=== PATIENT | male | born 1970 | race Caucasian/White ===

== ENCOUNTER 2021-04-16 11:06 | Inpatient (IN) ==
[2021-04-16 11:16] VITALS: BMI 30.6
[2021-04-16] MEDS ORDERED: SOLU-Medrol 125 MG VIAL IVP ONE (11:45)
[2021-04-16] MEDS ORDERED: NS 1,000 ML IV 1,000 ML IV ONE (11:45)
--- NOTE | 2021-04-16 11:46 | DR.SOBA ---
HPI Time Seen Time Seen by Provider: 04/16/21 11:33 HPI Comment HPI Comment: PATIENT IS 51YR OLD MALE IN ER WITH INCREASING SOB, COUGH, CONGESTION AND HEADACHE, WORSE SINCE LAST NIGHT. SICK TIMES 0NE WEEK. TESTED POSITIVE FOR COVID 19 VIRUS THURSDAY. DENIES FEVER. NO VOMITING OR DIARRHEA. RECEIVE ANTIBIOTICS AND STERIOD. NO IMPROVEMENT. Complaints Chief Complaint Doctors Comments: INCREASING SOB AND HEADACHE TIMES ONE DAY. TESTED POTIVE FOR COVID 19 VIRUS ON THURSDAY. Chief Complaint:: TESTED POSITIVE SINCE LAST THURSDAY, HAVE HAD IVERMECTIN, ZPAK,PREDNISONE AND FINISHED TODAY. PATIENT FELT SHORTNESS OF BREATH AND SEVERE HEADACHE ALL NIGHT. PATIENT HAS NOT BEEN GIVEN COVID INFUSION AND NOT VACCINATED. CALLED EMS THIS MORING DUE TO SOB, SATS WAS 91-93%, HAD BROTHER BRING TO ER Self Treatment fo Chief Complaint: STEROIDS, ZPAK, IVERMECTIN COVID-19 Coronavirus risk:travel/contact w/high risk person: No Has patient experienced Coronavirus symptoms: Yes Coronavirus symptoms experienced: Coughing and Shortness of Breath Reviewed Nurses Notes Reviewed: Yes Source History Provided: Patient Mode of Arrival Mode of Arrival: Ambulatory Timing Onset of Chief Complaint: 04/09/21 Duration Duration: Days Context Onset:: At Rest PE Risk Factors:: None History of:: None Currently on:: Neither Prehospital Care:: None Modifying Factors Worsens:: Exertion Improves:: Rest Associated Signs and Symptoms Associated Signs and Symptoms: Cough (SOB.) and Nasal Congestion If Chest Pain Quality: Pleuritic Location: Substernal If Cough Cough: Productive and Yellow Other History Other History: DM. PMH PMH Past Medical History: Yes Past Medical History: Diabetes Past Medical History Comment: DM TYPE 2 Past Surgical History: Yes Surgical History: Appendectomy Past Surgical History Comment: LEFT EYE Family History History of Family Medical Conditions: Yes Family Medical History: Diabetes Mellitus, Cancer, [place] and Hypertension Social History Type of Tobacco Use: None Alcohol Use: None Do you use any recreational Drugs:: No Lives With: Alone Lives Where: Home Travel Risk Coronavirus risk:travel/contact w/high risk person: No Has patient experienced Coronavirus symptoms: Yes Coronavirus symptoms experienced: Coughing and Shortness of Breath Infectious screening In the last 2 months have you had wt loss of >10#?: NO Have you had fever, night sweats or hemotysis?: No Have you traveled outside the country in the last 6 months?: No Isolation: Droplet ROS Review of Systems Constitutional: See HPI, Weakness and Fatigue; negative Fever Eyes: No Symptoms Reported and See HPI ENTM: See HPI, Nose Discharge and Nose Congestion Respiratoy: See HPI, Productive Cough and Short of Breath; negative Wheezing Cardiovascular: No Symptoms Reported and See HPI; negative Chest Pain Gastrointestinal/Abdominal: No Symptoms Reported and See HPI; negative Abdominal Pain, Diarrhea and Vomiting Genitourinary: No Symptoms Reported and See HPI; negative Dysuria, Frequency and Hematuria Neurological: See HPI, Headache and Weakness; negative Dizziness Musculoskeletal: No Symptoms Reported and See HPI; negative Back Pain and Muscle Pain Integumentary: No Symptoms Reported and See HPI; negative Rash and Juandice Hematologic/Lymphatic: No Symptoms Reported and See HPI; negative Easy Bruising Endocrine: No Symptoms Reported and See HPI; negative Increased Thirst and Increased Urine Psychiatric: No Symptoms Reported and See HPI All Other Systems: Reviewed and Negative PE Vital Signs Vitals: Temperature 99.3 F Pulse Rate 90 Respiratory Rate 26 Blood Pressure [Left Arm] 139/67 Blood Pressure 134/64 O2 Sat by Pulse Oximetry 92 General Limitations: No Limitations General Appearance: Alert and In Distress Head Head Exam: Normal Inspection Eyes Eye exam: Normal Appearance; negative Scleral Icterus and Conjunctival Injection ENT ENT Exam: Normal Exam, Normal Oropharynx, Normal External Ear Exam and TM's Normal Bilaterally Neck Neck Exam: Normal Inspection and Trachea Midline; negative Tenderness Chest Chest Inspection: Normal Inspection and Symmetric Chest Wall Rise; negative Tenderness Respiratory Respiratory Exam: Normal Lung Sounds Bilat; negative Accessory Muscle Use, Chest Wall Tenderness and Respiratory Distress Respiratory Exam: Bilateral: Rhonchi and Lower: Rhonchi Cardiovascular Cardiovascular Exam: Regular Rate, Normal Rhythm and Normal Heart Sounds; negative Systolic Murmur and Diastolic Murmur Abdominal Exam Abdominal Exam: Normal Inspection, Normal Bowel Sounds and Soft; negative Tenderness Extremities Extremities Exam: Normal Inspection and Normal Capillary Refill Back Back Exam: Normal Inspection; negative (R) CVA Tenderness and (L) CVA Tenderness Neurologic Neurological Exam: Alert and Oriented X3; negative Motor Sensory Deficit Psychiatric Psychiatric Exam: Normal Affect and Normal Mood Skin Skin Exam: Warm, Dry, Intact and Normal Color MDM Differential Diagnosis Differential Diagnosis: Bronchitis, Pneumonia, Pneumothorax, Respiratory Insufficiency, Sinusitis and URI COURSE Treatment Treatment: SEE ORDERS. Education/Counseling Education/Counseling: Patient Educated On: Diagnosis and Needs for Follow Up ROR Labs Reviewed Laboratory Results Reviewed?: Yes Result Diagrams: 04/22/21 05:12 04/22/21 05:12 Laboratory: WBC 6.0 X10^3/uL (3.6-10.0) 04/17/21 04:17 RBC 3.73 X10^6/uL (4.7-6.0) L 04/17/21 04:17 Hgb 11.7 g/dL (13.5-18.0) L 04/17/21 04:17 Hct 33.8 % (42.0-54.0) L 04/17/21 04:17 MCV 90.6 fL (80.0-100.0) 04/17/21 04:17 MCH 31.4 pg (27.0-34.0) 04/17/21 04:17 MCHC 34.6 g/dL (33.0-35.0) 04/17/21 04:17 RDW 12.7 % (11.6-16.5) 04/17/21 04:17 Plt Count 297 X10^3/uL (150.0-450.0) 04/17/21 04:17 Plt Count Comment Adequate (ADEQUATE) 04/16/21 14:00 MPV 6.8 fL (7.4-11.0) L 04/17/21 04:17 Neut % (Auto) 82.1 % (42.0-75.0) H 04/17/21 04:17 Lymph % (Auto) 9.5 % (21.0-51.0) L 04/17/21 04:17 Vermilion % (Auto) 8.3 % (0.0-13.0) 04/17/21 04:17 Eos % (Auto) 0.0 % (0.9-2.9) L 04/17/21 04:17 Baso % (Auto) 0.1 % (0.2-1.0) L 04/17/21 04:17 Neut # (Auto) 5.0 x10^3/uL (2.2-4.8) H 04/17/21 04:17 Lymph # (Auto) 0.6 X10^3/uL (1.3-2.9) L 04/17/21 04:17 Vermilion # (Auto) 0.5 x10^3/uL (0.3-0.8) 04/17/21 04:17 Eos # (Auto) 0.0 x10^3/uL (0.0-0.2) 04/17/21 04:17 Baso # (Auto) 0.0 X10^3/uL (0.0-0.1) 04/17/21 04:17 Absolute Nucleated RBC 0.0 /100WBC 04/17/21 04:17 Total Counted 100 04/16/21 14:00 Neutrophils % (Manual) 87 % (39-76) H 04/16/21 14:00 Band Neutrophils % 4 % (0-10) 04/16/21 14:00 Lymphocytes % (Manual) 5 % (13-43) L 04/16/21 14:00 Monocytes % (Manual) 4 % (4-9) 04/16/21 14:00 Plt Morphology Comment Normal (NORMAL) 04/16/21 14:00 RBC Morphology Normal (NORMAL) 04/16/21 14:00 D-Dimer 0.52 ug/ml (0.0-0.57) 04/16/21 14:00 Sodium 138 mmol/L (136-145) 04/17/21 04:17 Corrected Sodium 140 mmol/L (136-145) 04/17/21 04:17 Potassium 3.7 mmol/L (3.5-5.1) 04/17/21 04:17 Chloride 105 mmol/L (98-107) 04/17/21 04:17 Carbon Dioxide 22.0 mmol/L (21-32) 04/17/21 04:17 BUN 14 mg/dL (7-18) 04/17/21 04:17 Creatinine 0.96 mg/dL (0.70-1.30) 04/17/21 04:17 Est GFR (MDRD) Af Amer > 60 (>60) 04/17/21 04:17 Est GFR (MDRD) Non-Af > 60 (>60) 04/17/21 04:17 Glucose 185 mg/dL (65-99) H 04/17/21 04:17 Calcium 7.8 mg/dL (8.5-10.1) L 04/17/21 04:17 Corrected Calcium 9.2 mg/dL (8.5-10.1) 04/17/21 04:17 Total Bilirubin 0.30 mg/dL (0.2-1.0) 04/17/21 04:17 AST 21 Units/L (15-37) 04/17/21 04:17 ALT 28 Units/L (12-78) 04/17/21 04:17 Alkaline Phosphatase 45 Units/L (46-116) L 04/17/21 04:17 C-Reactive Protein 90.20 mg/L (0-3.0) H 04/17/21 04:17 Total Protein 6.5 g/dL (6.4-8.2) 04/17/21 04:17 Albumin 2.2 g/dL (3.4-5.0) L 04/17/21 04:17 Globulin 4.3 g/dL (2.5-4.5) 04/17/21 04:17 Albumin/Globulin Ratio 0.5 Ratio (1.1-2.1) L 04/17/21 04:17 Specimen Type Clean catch urine 04/16/21 21: Urine Color Yellow (YELLOW) 04/16/21 21: Urine Appearance Clear (CLEAR) 04/16/21 21: Urine pH 6.0 (5.0 - 8.0) 04/16/21 21: Ur Specific [place] 1.025 (1.000-1.030) 04/16/21 21: Urine Protein 2+ (NEGATIVE) 04/16/21 21: Urine Glucose (UA) 4+ (NEGATIVE) 04/16/21 21: Urine Ketones Negative (NEGATIVE) 04/16/21 21: Urine Occult Blood Negative (NEGATIVE) 04/16/21 21: Urine Nitrite Negative (NEGATIVE) 04/16/21 21: Urine Bilirubin Negative (NEGATIVE) 04/16/21 21: Urine Urobilinogen Normal (NORMAL) 04/16/21 21: Ur Leukocyte Esterase Negative (NEGATIVE) 04/16/21 21: Urine RBC None seen /HPF (0-3) 04/16/21 21: Urine WBC None seen /HPF (0-5) 04/16/21 21: Ur Squamous Epith Cells Rare /HPF (NEGATIVE) 04/16/21 21: Urine Bacteria Negative /HPF (NEGATIVE) 01/18/22 21:26 Ur Culture Indicated? No/not indicated 04/16/21 21:26 SARS-CoV-2 (PCR) Positive (NEGATIVE) A 04/16/21 15:00 Influenza Type A (PCR) Negative (NEGATIVE) 04/16/21 15:00 Influenza Type B (PCR) Negative (NEGATIVE) 04/16/21 15:00 RSV (PCR) Negative (NEGATIVE) 04/16/21 15:00 XRAY XRAY Interpreted by: Radiologist (REPORT NOTED AND DISCUSSED WITH PATIENT.) and Self Opioid Opioid Risk Tool Age (Garret box if 16-45): No History of Preadolescent Sexual Abuse: No Total: 0 Total Score Risk Category: Low Risk Copyright: [facility] predicting aberrant behaviors Diagnosis Discharge Problem: Acute respiratory distress, COVID-19 virus infection Pneumonia Qualifiers: Pneumonia type: due to unspecified organism Laterality: bilateral Lung location: lower lobe of lung Qualified Code(s): J18.9 - Pneumonia, unspecified organism Instructions Instructions: How to Use an Incentive Spirometer Home Oxygen Use, Adult COVID-19 Frequently Asked Questions Type 2 Diabetes Mellitus, Self-Care, Adult, [id number] How to Wear and Take Off Your Mask - CDC (06/28/2020) 10 Things You Can Do to Manage Your COVID-19 Symptoms at Home - CDC () COVID-19 COVID-19: How to Protect Yourself and Others - CDC Hypertension, Adult, [id number] Community-Acquired Pneumonia, Adult, [id number] Forms: EUA Consent Excuse From Work or School Precautions for COVID19 [facility] Social Distancing Arlyn
[2021-04-16] MEDS ORDERED: SOLU-Medrol 125 MG VIAL ONE (11:48)
[2021-04-16] MEDS ORDERED: NS 1,000 ML IV 1,000 ML ONE ×2 (11:48→14:12)
[2021-04-16 12:02] LABS: BASOPHILS # (AUTO) 0.1 X10^3/uL (0.0-0.1); BASOPHILS % (AUTO) 1.5 % (0.2-1.0); EOSINOPHILS % (AUTO) 0.1 % (0.9-2.9); HEMATOCRIT 36.4 % (42.0-54.0); HEMOGLOBIN 12.7 g/dL (13.5-18.0); LYMPHOCYTES # (AUTO) 0.4 X10^3/uL (1.3-2.9); LYMPHOCYTES % (AUTO) 5.6 % (21.0-51.0); MEAN CORPUSCULAR HEMOGLOBIN 31.7 pg (27.0-34.0); MEAN CORPUSCULAR VOLUME 90.5 fL (80.0-100.0); MEAN PLATELET VOLUME 6.4 fL (7.4-11.0); MONOCYTES # (AUTO) 0.4 x10^3/uL (0.3-0.8); NEUTROPHILS # (AUTO) 6.5 x10^3/uL (2.2-4.8); NEUTROPHILS % (AUTO) 86.8 % (42.0-75.0); RED BLOOD COUNT 4.03 X10^6/uL (4.7-6.0); RED CELL DISTRIBUTION WIDTH 12.7 % (11.6-16.5); WHITE BLOOD COUNT 7.4 X10^3/uL (3.6-10.0)
[2021-04-16 12:52] LABS: ALANINE AMINOTRANSFERASE 31 Units/L (12-78); ALBUMIN 2.7 g/dL (3.4-5.0); ALKALINE PHOSPHATASE 54 Units/L (46-116); ASPARTATE AMINO TRANSFERASE 37 Units/L (15-37); BLOOD UREA NITROGEN 13 mg/dL (7-18); CALCIUM 8.1 mg/dL (8.5-10.1); CARBON DIOXIDE 26.3 mmol/L (21-32); CHLORIDE 99 mmol/L (98-107); COR CA(FOR HYPOALB) 9.1 mg/dL (8.5-10.1); COR NA(FOR HYPERGLY) 134 mmol/L (136-145); CREATININE 1.04 mg/dL (0.70-1.30); SODIUM 134 mmol/L (136-145); TOTAL PROTEIN 7.3 g/dL (6.4-8.2); eGFR NON BLACK RACES > 60 (>60)
[2021-04-16] MEDS ORDERED: TORADOL 30 MG VIAL IVP ONE (13:26)
[2021-04-16] MEDS ORDERED: TORADOL 30 MG VIAL ONE (13:30)
[2021-04-16 14:12] LABS: BASOPHILS # (AUTO) 0.1 X10^3/uL (0.0-0.1); BASOPHILS % (AUTO) 1.2 % (0.2-1.0); HEMATOCRIT 36.1 % (42.0-54.0); HEMOGLOBIN 12.5 g/dL (13.5-18.0); LYMPHOCYTES # (AUTO) 0.4 X10^3/uL (1.3-2.9); LYMPHOCYTES % (AUTO) 4.9 % (21.0-51.0); MEAN CORPUSCULAR HEMOGLOBIN 31.4 pg (27.0-34.0); MEAN CORPUSCULAR HGB CONC 34.7 g/dL (33.0-35.0); MEAN CORPUSCULAR VOLUME 90.7 fL (80.0-100.0); MEAN PLATELET VOLUME 6.4 fL (7.4-11.0); MONOCYTES # (AUTO) 0.3 x10^3/uL (0.3-0.8); MONOCYTES % (AUTO) 3.8 % (0.0-13.0); NEUTROPHILS # (AUTO) 6.8 x10^3/uL (2.2-4.8); NEUTROPHILS % (AUTO) 90.1 % (42.0-75.0); RED BLOOD COUNT 3.98 X10^6/uL (4.7-6.0); RED CELL DISTRIBUTION WIDTH 12.9 % (11.6-16.5); WHITE BLOOD COUNT 7.6 X10^3/uL (3.6-10.0)
[2021-04-16] MEDS: NS 1,000 ML IV 1,000 ML IV SCH ×2 (14:17→23:32)
[2021-04-16 14:26] LABS: BAND NEUTROPHILS % 4 % (0-10); PLATELET MORPHOLOGY COMMENT NORMAL (NORMAL)
[2021-04-16 14:27] LABS: ALANINE AMINOTRANSFERASE 32 Units/L (12-78); ALBUMIN 2.5 g/dL (3.4-5.0); ALKALINE PHOSPHATASE 50 Units/L (46-116); ASPARTATE AMINO TRANSFERASE 31 Units/L (15-37); BLOOD UREA NITROGEN 12 mg/dL (7-18); CALCIUM 7.8 mg/dL (8.5-10.1); CARBON DIOXIDE 24.2 mmol/L (21-32); CHLORIDE 101 mmol/L (98-107); COR NA(FOR HYPERGLY) 136 mmol/L (136-145); CREATININE 0.88 mg/dL (0.70-1.30); SODIUM 135 mmol/L (136-145); TOTAL PROTEIN 6.9 g/dL (6.4-8.2); eGFR NON BLACK RACES > 60 (>60)
--- NOTE | 2021-04-16 15:00 | RAD ---
HISTORYSOBSTUDYCHEST, 1 VIEWCOMPARISONNone availableFINDINGSThe trachea is midline. Heart size is normal. There is moderate increased central and peripheral peribronchial thickening with predominately peripheral consolidation within the right upper lobe and throughout the left lung which is consistent with multifocal infiltrates. No pleural effusion or pneumothorax.No acute osseous abnormality.IMPRESSIONBilateral increased peribronchial thickening with predominately peripheral airspace consolidation is consistent with multifocal infiltrates/pneumonia.Electronically signed by: VALERIE MAURICIO (Apr 16, 2021 14:58:57)
[2021-04-16] MEDS ORDERED: NS IV NR ×2 (16:00)
[2021-04-16] MEDS ORDERED: SOTROVIMAB IV NR ×2 (16:00)
[2021-04-16] MEDS ORDERED: DRUG FILTER EXTENSION SET IV NR ×2 (16:00)
[2021-04-16] MEDS ORDERED: SOTROVIMAB (EUA) 500 MG, DRUG FILTER EXTENSION SET * 1 EA in NS 250 ML IV 250 ML IV NR ×2 (16:00)
[2021-04-16] MEDS ORDERED: PULMICORT NEB TX 0.5 MG NEB ONE (20:13)
[2021-04-16] MEDS ORDERED: BROVANA ONE (20:13)
[2021-04-16] MEDS: BROVANA IN SCH (20:28)
[2021-04-16] MEDS: PULMICORT NEB TX 0.5 MG NEB SCH (20:28)
[2021-04-16] MEDS ORDERED: PULMICORT NEB TX 0.5 MG NEB SCH (21:00)
[2021-04-16] MEDS ORDERED: BROVANA IN SCH (21:00)
[2021-04-16] MEDS ORDERED: NovoLIN R (or HumuLIN R) ONE (22:14)
[2021-04-16] MEDS ORDERED: NS 50 ML IV 50 ML IV ONE (22:16)
[2021-04-16] MEDS: ZINC SULFATE PO SCH (22:18)
[2021-04-16] MEDS: VIBRAMYCIN PO SCH (22:18)
[2021-04-16] MEDS: PEPCID TAB 40 MG PO SCH (22:18)
[2021-04-16] MEDS: NovoLIN R (or HumuLIN R) SUBCUT PRN (22:18)
[2021-04-16] MEDS: LOVENOX INJ 30 MG SYR SC SCH (22:19)
[2021-04-16] MEDS: ASCORBIC ACID INJ MULTI-DOSE VIAL 1,500 MG in NS 100 ML IV 100 ML IV SCH (22:20)
[2021-04-16 22:26] LABS: BILIRUBIN,URINE NEGATIVE (NEGATIVE); BLOOD/HEMOGLOBIN,URINE NEGATIVE (NEGATIVE); GLUCOSE, URINE 4+ (NEGATIVE); KETONES,URINE NEGATIVE (NEGATIVE); LEUKOCYTE ESTERASE ,URINE NEGATIVE (NEGATIVE); NITRITES,URINE NEGATIVE (NEGATIVE); PROTEIN,URINE 2+ (NEGATIVE); UROBILINOGEN,URINE NORMAL (NORMAL)
[2021-04-16 22:40] LABS: APPEARANCE,URINE CLEAR (CLEAR); BACTERIA,URINE NEGATIVE /HPF (NEGATIVE); COLOR,URINE YELLOW (YELLOW); RBC,URINE NONE SEEN /HPF (0-3); SQUAMOUS EPITHELIAL CELL,UR RARE /HPF (NEGATIVE)
[2021-04-16] MEDS: SOLU-Medrol 40 MG VIAL IVP SCH (22:58)
[2021-04-16] MEDS: ZOSYN VIAL 3.375 GRAMS 3.375 G in NS 100 ML IV + SPIKE MINIBAG* 100 ML IV SCH (22:59)
[2021-04-17] MEDS ORDERED: NS 50 ML IV 50 ML IV ONE (02:55)
[2021-04-17] MEDS: ASCORBIC ACID INJ MULTI-DOSE VIAL 1,500 MG in NS 100 ML IV 100 ML IV SCH (03:17)
[2021-04-17 05:36] LABS: BASOPHILS % (AUTO) 0.1 % (0.2-1.0); HEMATOCRIT 33.8 % (42.0-54.0); HEMOGLOBIN 11.7 g/dL (13.5-18.0); LYMPHOCYTES # (AUTO) 0.6 X10^3/uL (1.3-2.9); LYMPHOCYTES % (AUTO) 9.5 % (21.0-51.0); MEAN CORPUSCULAR HEMOGLOBIN 31.4 pg (27.0-34.0); MEAN CORPUSCULAR HGB CONC 34.6 g/dL (33.0-35.0); MEAN CORPUSCULAR VOLUME 90.6 fL (80.0-100.0); MEAN PLATELET VOLUME 6.8 fL (7.4-11.0); MONOCYTES # (AUTO) 0.5 x10^3/uL (0.3-0.8); MONOCYTES % (AUTO) 8.3 % (0.0-13.0); NEUTROPHILS % (AUTO) 82.1 % (42.0-75.0); RED BLOOD COUNT 3.73 X10^6/uL (4.7-6.0); RED CELL DISTRIBUTION WIDTH 12.7 % (11.6-16.5)
[2021-04-17 05:44] LABS: ALANINE AMINOTRANSFERASE 28 Units/L (12-78); ALBUMIN 2.2 g/dL (3.4-5.0); ALKALINE PHOSPHATASE 45 Units/L (46-116); ASPARTATE AMINO TRANSFERASE 21 Units/L (15-37); BLOOD UREA NITROGEN 14 mg/dL (7-18); CALCIUM 7.8 mg/dL (8.5-10.1); CHLORIDE 105 mmol/L (98-107); COR CA(FOR HYPOALB) 9.2 mg/dL (8.5-10.1); COR NA(FOR HYPERGLY) 140 mmol/L (136-145); CREATININE 0.96 mg/dL (0.70-1.30); SODIUM 138 mmol/L (136-145); TOTAL PROTEIN 6.5 g/dL (6.4-8.2); eGFR NON BLACK RACES > 60 (>60)
[2021-04-17] MEDS: SOLU-Medrol 40 MG VIAL IVP SCH (05:50)
[2021-04-17] MEDS: ZOSYN VIAL 3.375 GRAMS 3.375 G in NS 100 ML IV + SPIKE MINIBAG* 100 ML IV SCH ×3 (05:50→21:46)
[2021-04-17] MEDS: NovoLIN R (or HumuLIN R) SUBCUT PRN ×2 (06:02→21:02)
[2021-04-17] MEDS: PULMICORT NEB TX 0.5 MG NEB SCH ×2 (08:00→20:15)
[2021-04-17] MEDS: BROVANA IN SCH ×2 (08:00→20:15)
[2021-04-17] MEDS: LOVENOX INJ 30 MG SYR SC SCH (08:33)
[2021-04-17] MEDS: PEPCID TAB 40 MG PO SCH ×2 (08:34→20:58)
[2021-04-17] MEDS: VIBRAMYCIN PO SCH ×2 (08:34→21:01)
[2021-04-17] MEDS: TRICOR TAB 160 MG PO SCH (08:34)
[2021-04-17] MEDS: ZINC SULFATE PO SCH ×2 (08:35→21:01)
[2021-04-17] MEDS ORDERED: VITAMIN A PO SCH ×2 (09:00→10:30)
[2021-04-17] MEDS ORDERED: VITAMIN D (1.25MG) PO SCH (09:00)
[2021-04-17] MEDS: NS 1,000 ML IV 1,000 ML IV SCH ×2 (09:33→12:25)
[2021-04-17] MEDS ORDERED: PERIACTIN TAB 4 MG PO PRN (10:05)
[2021-04-17] MEDS ORDERED: LOVENOX INJ 60 MG SYR SC NR (11:00)
[2021-04-17] MEDS ORDERED: PHARMACY CONSULT - IVERMECTIN XX SCH (11:00)
[2021-04-17] MEDS: IVERMECTIN PO SCH (12:04)
[2021-04-17] MEDS: THIAMINE HCL INJ IVP SCH ×2 (12:05→20:59)
[2021-04-17] MEDS: SOLU-Medrol 125 MG VIAL IVP SCH ×3 (12:05→21:01)
[2021-04-17] MEDS: CYTOTEC PO SCH ×3 (14:34→20:56)
[2021-04-17] MEDS: ASCORBIC ACID INJ MULTI-DOSE VIAL 1,500 MG in NS 50 ML IV 50 ML IV SCH ×2 (15:23→20:56)
[2021-04-17] MEDS: TESSALON PERLES PO PRN ×2 (18:14→21:46)
[2021-04-17] MEDS: SNACK - Diabetic Appropriate PO SCH (20:56)
[2021-04-17] MEDS: LOVENOX INJ 100 MG SYR SC SCH (20:57)
[2021-04-17] MEDS: MELATONIN PO SCH (20:57)
[2021-04-17] MEDS: PROTONIX INJ 40 MG VIAL IVP SCH (20:59)
[2021-04-17] MEDS ORDERED: BROVANA IN SCH (21:00)
[2021-04-17] MEDS ORDERED: PULMICORT NEB TX 0.5 MG NEB SCH (21:00)
[2021-04-18] MEDS: ASCORBIC ACID INJ MULTI-DOSE VIAL 1,500 MG in NS 50 ML IV 50 ML IV SCH ×4 (02:16→20:13)
[2021-04-18 05:08] LABS: BASOPHILS % (AUTO) 0.1 % (0.2-1.0); HEMOGLOBIN 11.4 g/dL (13.5-18.0); LYMPHOCYTES # (AUTO) 0.9 X10^3/uL (1.3-2.9); LYMPHOCYTES % (AUTO) 6.9 % (21.0-51.0); MEAN CORPUSCULAR HEMOGLOBIN 31.3 pg (27.0-34.0); MEAN CORPUSCULAR HGB CONC 34.4 g/dL (33.0-35.0); MONOCYTES # (AUTO) 0.6 x10^3/uL (0.3-0.8); MONOCYTES % (AUTO) 4.4 % (0.0-13.0); NEUTROPHILS # (AUTO) 12.2 x10^3/uL (2.2-4.8); NEUTROPHILS % (AUTO) 88.6 % (42.0-75.0); RED BLOOD COUNT 3.63 X10^6/uL (4.7-6.0); RED CELL DISTRIBUTION WIDTH 12.9 % (11.6-16.5); WHITE BLOOD COUNT 13.7 X10^3/uL (3.6-10.0)
[2021-04-18 05:14] LABS: ALANINE AMINOTRANSFERASE 31 Units/L (12-78); ALBUMIN 2.1 g/dL (3.4-5.0); ALKALINE PHOSPHATASE 46 Units/L (46-116); ASPARTATE AMINO TRANSFERASE 21 Units/L (15-37); BLOOD UREA NITROGEN 19 mg/dL (7-18); CALCIUM 7.7 mg/dL (8.5-10.1); CARBON DIOXIDE 24.9 mmol/L (21-32); CHLORIDE 106 mmol/L (98-107); COR CA(FOR HYPOALB) 9.2 mg/dL (8.5-10.1); COR NA(FOR HYPERGLY) 145 mmol/L (136-145); CREATININE 1.13 mg/dL (0.70-1.30); SODIUM 142 mmol/L (136-145); TOTAL PROTEIN 6.2 g/dL (6.4-8.2); eGFR NON BLACK RACES > 60 (>60)
[2021-04-18] MEDS: ZOSYN VIAL 3.375 GRAMS 3.375 G in NS 100 ML IV + SPIKE MINIBAG* 100 ML IV SCH ×4 (05:43→21:06)
[2021-04-18] MEDS: SOLU-Medrol 125 MG VIAL IVP SCH ×3 (05:44→21:06)
[2021-04-18] MEDS: NovoLIN R (or HumuLIN R) SUBCUT PRN ×2 (05:44→20:15)
[2021-04-18] MEDS: TUSSIONEX PENNKINETIC SUSP PO PRN ×2 (07:49→20:20)
[2021-04-18] MEDS: PULMICORT NEB TX 0.5 MG NEB SCH ×2 (08:22→20:34)
[2021-04-18] MEDS: BROVANA IN SCH ×2 (08:22→21:35)
[2021-04-18] MEDS: CYTOTEC PO SCH ×4 (08:35→20:14)
[2021-04-18] MEDS: IVERMECTIN PO SCH (08:35)
[2021-04-18] MEDS: LIPITOR TAB 80 MG PO SCH (08:35)
[2021-04-18] MEDS: LOVENOX INJ 100 MG SYR SC SCH ×2 (08:35→20:14)
[2021-04-18] MEDS: PEPCID TAB 40 MG PO SCH ×2 (08:35→20:16)
[2021-04-18] MEDS: THIAMINE HCL INJ IVP SCH ×2 (08:36→20:18)
[2021-04-18] MEDS: PROTONIX INJ 40 MG VIAL IVP SCH ×2 (08:36→20:17)
[2021-04-18] MEDS: VITAMIN A PO SCH (08:37)
[2021-04-18] MEDS: TRICOR TAB 160 MG PO SCH (08:37)
[2021-04-18] MEDS: VIBRAMYCIN PO SCH ×2 (08:37→20:19)
[2021-04-18] MEDS: ZINC SULFATE PO SCH ×2 (08:38→20:19)
[2021-04-18] MEDS: VITAMIN D3 125 mcg (5,000 UNITS) PO SCH (08:38)
[2021-04-18] MEDS ORDERED: FIORICET TAB PO PRN (09:09)
[2021-04-18] MEDS: NS 1,000 ML IV 1,000 ML IV SCH (10:57)
[2021-04-18] MEDS: SNACK - Diabetic Appropriate PO SCH (20:12)
[2021-04-18] MEDS: MELATONIN PO SCH (20:15)
[2021-04-19] MEDS: ASCORBIC ACID INJ MULTI-DOSE VIAL 1,500 MG in NS 50 ML IV 50 ML IV SCH ×3 (02:12→14:32)
[2021-04-19 05:33] LABS: BASOPHILS # (AUTO) 0.2 X10^3/uL (0.0-0.1); BASOPHILS % (AUTO) 1.2 % (0.2-1.0); EOSINOPHILS # (AUTO) 0.1 x10^3/uL (0.0-0.2); EOSINOPHILS % (AUTO) 0.8 % (0.9-2.9); HEMATOCRIT 33.3 % (42.0-54.0); HEMOGLOBIN 11.4 g/dL (13.5-18.0); LYMPHOCYTES # (AUTO) 1.3 X10^3/uL (1.3-2.9); LYMPHOCYTES % (AUTO) 8.8 % (21.0-51.0); MEAN CORPUSCULAR HEMOGLOBIN 31.4 pg (27.0-34.0); MEAN CORPUSCULAR HGB CONC 34.2 g/dL (33.0-35.0); MEAN CORPUSCULAR VOLUME 91.9 fL (80.0-100.0); MEAN PLATELET VOLUME 7.2 fL (7.4-11.0); MONOCYTES # (AUTO) 0.5 x10^3/uL (0.3-0.8); MONOCYTES % (AUTO) 3.2 % (0.0-13.0); RED BLOOD COUNT 3.62 X10^6/uL (4.7-6.0); RED CELL DISTRIBUTION WIDTH 13.2 % (11.6-16.5); WHITE BLOOD COUNT 15.1 X10^3/uL (3.6-10.0)
[2021-04-19 05:50] LABS: ALANINE AMINOTRANSFERASE 40 Units/L (12-78); ALBUMIN 2.2 g/dL (3.4-5.0); ALKALINE PHOSPHATASE 43 Units/L (46-116); ASPARTATE AMINO TRANSFERASE 24 Units/L (15-37); BLOOD UREA NITROGEN 23 mg/dL (7-18); CALCIUM 7.5 mg/dL (8.5-10.1); CARBON DIOXIDE 25.9 mmol/L (21-32); CHLORIDE 108 mmol/L (98-107); COR CA(FOR HYPOALB) 8.9 mg/dL (8.5-10.1); COR NA(FOR HYPERGLY) 145 mmol/L (136-145); CREATININE 1.09 mg/dL (0.70-1.30); SODIUM 143 mmol/L (136-145); eGFR NON BLACK RACES > 60 (>60)
[2021-04-19] MEDS: SOLU-Medrol 125 MG VIAL IVP SCH (06:09)
[2021-04-19] MEDS: ZOSYN VIAL 3.375 GRAMS 3.375 G in NS 100 ML IV + SPIKE MINIBAG* 100 ML IV SCH ×2 (06:09→14:32)
[2021-04-19 06:16] LABS: PLATELET MORPHOLOGY COMMENT NORMAL (NORMAL)
[2021-04-19] MEDS: PULMICORT NEB TX 0.5 MG NEB SCH (08:00)
[2021-04-19] MEDS: BROVANA IN SCH (08:00)
[2021-04-19] MEDS ORDERED: VITAMIN A PO SCH (09:00)
[2021-04-19] MEDS ORDERED: VITAMIN D3 125 mcg (5,000 UNITS) PO SCH (09:00)
[2021-04-19] MEDS: CYTOTEC PO SCH ×3 (09:15→16:58)
[2021-04-19] MEDS: PEPCID TAB 40 MG PO SCH (09:16)
[2021-04-19] MEDS: LOVENOX INJ 100 MG SYR SC SCH (09:16)
[2021-04-19] MEDS: IVERMECTIN PO SCH (09:16)
[2021-04-19] MEDS: PROTONIX INJ 40 MG VIAL IVP SCH (09:16)
[2021-04-19] MEDS: LIPITOR TAB 80 MG PO SCH (09:16)
[2021-04-19] MEDS: VIBRAMYCIN PO SCH (09:17)
[2021-04-19] MEDS: TRICOR TAB 160 MG PO SCH (09:17)
[2021-04-19] MEDS: VITAMIN D3 125 mcg (5,000 UNITS) PO SCH (09:17)
[2021-04-19] MEDS: ZINC SULFATE PO SCH (09:17)
[2021-04-19] MEDS: VITAMIN A PO SCH (09:17)
[2021-04-19] MEDS: THIAMINE HCL INJ IVP SCH (09:17)
[2021-04-19] MEDS: SOLU-Medrol 40 MG VIAL IVP SCH ×2 (09:44→14:32)
[2021-04-19] MEDS: NS 1,000 ML IV 1,000 ML IV SCH (10:40)
[2021-04-19] MEDS ORDERED: PULMICORT NEB TX 0.5 MG NEB ONE (20:00)
[2021-04-19] MEDS ORDERED: BROVANA IN ONE (20:00)
[2021-04-19] MEDS ORDERED: TUSSIONEX PENNKINETIC SUSP PO ONE (21:00)
[2021-04-19] MEDS ORDERED: CYTOTEC PO ONE (21:00)
[2021-04-19] MEDS ORDERED: VIBRAMYCIN PO ONE (21:00)
[2021-04-19] MEDS ORDERED: PROTONIX INJ 40 MG VIAL IVP ONE (21:00)
[2021-04-19] MEDS ORDERED: PEPCID TAB 40 MG PO ONE (21:00)
[2021-04-19] MEDS ORDERED: THIAMINE HCL INJ IM ONE (21:00)
[2021-04-19] MEDS ORDERED: LOVENOX INJ 100 MG SYR SC ONE (21:00)
[2021-04-19] MEDS ORDERED: MELATONIN PO ONE (21:00)
[2021-04-19] MEDS ORDERED: SOLU-Medrol 40 MG VIAL IVP ONE (22:00)
[2021-04-19] MEDS ORDERED: NS 100 ML IV + SPIKE MINIBAG IV ONE (22:00)
[2021-04-19] MEDS ORDERED: NovoLIN R (or HumuLIN R) SUBCUT ONE (22:00)
[2021-04-19] MEDS ORDERED: ZOSYN VIAL 3.375 GRAMS IV ONE (22:00)
[2021-04-19] MEDS ORDERED: NS IV ONE (22:00)
[2021-04-19] MEDS ORDERED: ASCORBIC ACID INJ MULTI-DOSE VIAL IV ONE (22:00)
[2021-04-20] MEDS ORDERED: LIPITOR TAB 80 MG PO ONE (09:00)
[2021-04-20] MEDS ORDERED: PEPCID TAB 40 MG PO ONE (09:00)
[2021-04-20] MEDS ORDERED: ASCORBIC ACID INJ MULTI-DOSE VIAL IV ONE ×2 (09:00→15:00)
[2021-04-20] MEDS ORDERED: PROTONIX TAB 40 MG PO ONE (09:00)
[2021-04-20] MEDS ORDERED: THIAMINE HCL INJ ONE (09:00)
[2021-04-20] MEDS ORDERED: LOVENOX INJ 100 MG SYR SC ONE (09:00)
[2021-04-20] MEDS ORDERED: IVERMECTIN PO ONE (09:00)
[2021-04-20] MEDS ORDERED: CYTOTEC PO ONE (09:00)
[2021-04-20] MEDS: THIAMINE HCL INJ IVP SCH ×2 (09:15→20:46)
[2021-04-20] MEDS ORDERED: PULMICORT NEB TX 0.5 MG NEB ONE (09:15)
[2021-04-20] MEDS: CYTOTEC PO SCH ×4 (09:15→20:29)
[2021-04-20] MEDS: VIBRAMYCIN PO SCH ×2 (09:15→20:46)
[2021-04-20] MEDS ORDERED: BROVANA IN ONE (09:15)
[2021-04-20] MEDS: ASCORBIC ACID INJ MULTI-DOSE VIAL 1,500 MG in NS 50 ML IV 50 ML IV SCH ×4 (09:15→22:16)
[2021-04-20] MEDS ORDERED: ZOSYN VIAL 3.375 GRAMS IV ONE ×2 (09:23→14:18)
[2021-04-20] MEDS: VITAMIN D3 125 mcg (5,000 UNITS) PO SCH (09:35)
[2021-04-20] MEDS: PEPCID TAB 40 MG PO SCH ×2 (09:35→20:46)
[2021-04-20] MEDS: PROTONIX INJ 40 MG VIAL IVP SCH ×2 (09:35→20:46)
[2021-04-20] MEDS: ZINC SULFATE PO SCH ×2 (09:35→20:46)
[2021-04-20] MEDS: LOVENOX INJ 100 MG SYR SC SCH ×4 (09:40→20:29)
[2021-04-20] MEDS: TRICOR TAB 160 MG PO SCH (09:45)
[2021-04-20] MEDS: LIPITOR TAB 80 MG PO SCH (09:45)
[2021-04-20] MEDS: TUSSIONEX PENNKINETIC SUSP PO PRN (09:45)
[2021-04-20] MEDS: IVERMECTIN PO SCH (09:45)
[2021-04-20] MEDS: VITAMIN A PO SCH (09:45)
[2021-04-20] MEDS ORDERED: NS 1,000 ML IV IV ONE (11:00)
[2021-04-20] MEDS ORDERED: DECADRON TAB PO SCH (12:00)
[2021-04-20] MEDS ORDERED: NS 100 ML IV 100 ML ONE ×2 (14:17→20:07)
[2021-04-20] MEDS ORDERED: CARDIZEM INJ 125 MG VIAL ONE ×2 (14:17→20:07)
[2021-04-20] MEDS ORDERED: CARDIZEM CD 120 MG 24-HR PO ONE (14:17)
[2021-04-20 14:22] LABS: ALANINE AMINOTRANSFERASE 42 Units/L (12-78); ALBUMIN 2.2 g/dL (3.4-5.0); ALKALINE PHOSPHATASE 47 Units/L (46-116); ASPARTATE AMINO TRANSFERASE 26 Units/L (15-37); BLOOD UREA NITROGEN 22 mg/dL (7-18); CALCIUM 7.5 mg/dL (8.5-10.1); CHLORIDE 104 mmol/L (98-107); COR CA(FOR HYPOALB) 8.9 mg/dL (8.5-10.1); COR NA(FOR HYPERGLY) 142 mmol/L (136-145); SODIUM 141 mmol/L (136-145); TOTAL PROTEIN 6.1 g/dL (6.4-8.2); eGFR NON BLACK RACES > 60 (>60)
[2021-04-20 14:24] LABS: BASOPHILS # (AUTO) 0.2 X10^3/uL (0.0-0.1); EOSINOPHILS % (AUTO) 0.3 % (0.9-2.9); HEMATOCRIT 34.5 % (42.0-54.0); HEMOGLOBIN 11.6 g/dL (13.5-18.0); LYMPHOCYTES # (AUTO) 0.7 X10^3/uL (1.3-2.9); LYMPHOCYTES % (AUTO) 4.6 % (21.0-51.0); MEAN CORPUSCULAR HEMOGLOBIN 31.1 pg (27.0-34.0); MEAN CORPUSCULAR HGB CONC 33.6 g/dL (33.0-35.0); MEAN CORPUSCULAR VOLUME 92.6 fL (80.0-100.0); MEAN PLATELET VOLUME 7.4 fL (7.4-11.0); MONOCYTES # (AUTO) 0.9 x10^3/uL (0.3-0.8); MONOCYTES % (AUTO) 5.9 % (0.0-13.0); NEUTROPHILS # (AUTO) 13.2 x10^3/uL (2.2-4.8); NEUTROPHILS % (AUTO) 88.2 % (42.0-75.0); RED BLOOD COUNT 3.73 X10^6/uL (4.7-6.0); RED CELL DISTRIBUTION WIDTH 13.1 % (11.6-16.5)
[2021-04-20 14:25] LABS: BAND NEUTROPHILS % 2 % (0-10)
[2021-04-20 14:31] LABS: PLATELET MORPHOLOGY COMMENT NORMAL (NORMAL)
[2021-04-20] MEDS: ZOSYN VIAL 3.375 GRAMS 3.375 G in NS 100 ML IV + SPIKE MINIBAG* 100 ML IV SCH ×3 (14:52→22:20)
[2021-04-20] MEDS: CARDIZEM CD 120 MG 24-HR PO SCH (15:14)
[2021-04-20] MEDS: NS 1,000 ML IV 1,000 ML IV SCH ×2 (15:31→23:11)
[2021-04-20] MEDS: NovoLIN R (or HumuLIN R) SUBCUT PRN (18:56)
[2021-04-20] MEDS: CARDIZEM INJ 125 MG VIAL 125 MG in NS 100 ML IV 100 ML IV PRN ×2 (19:00→20:47)
[2021-04-20] MEDS: BROVANA IN SCH (20:25)
[2021-04-20] MEDS: PULMICORT NEB TX 0.5 MG NEB SCH (20:25)
[2021-04-20] MEDS: SNACK - Diabetic Appropriate PO SCH (20:26)
[2021-04-20] MEDS: MELATONIN PO SCH (20:46)
[2021-04-21] MEDS: ASCORBIC ACID INJ MULTI-DOSE VIAL 1,500 MG in NS 50 ML IV 50 ML IV SCH ×5 (02:29→20:34)
[2021-04-21] MEDS: TESSALON PERLES PO PRN (04:57)
[2021-04-21] MEDS: ZOSYN VIAL 3.375 GRAMS 3.375 G in NS 100 ML IV + SPIKE MINIBAG* 100 ML IV SCH (05:00)
--- NOTE | 2021-04-21 05:38 | RAD ---
PROCEDURE: Chest X-ray 1 View .HISTORY: COVID-19 and pneumonia.TECHNIQUE: AP portable done at 5:25 a.m..COMPARISON: 04/16/2021.TECHNICAL QUALITY: Satisfactory .FINDINGS:Unremarkable cardio mediastinal silhouette.Normal central vascularity.Some increase in peripheral consolidation left lung field and unchanged right upper lobe near the minor fissure. No pleural fluid or pneumothorax.IMPRESSION:Increase pneumonia on the left and unchanged on the right.Electronically signed by: Дмитрий Pantoja (Apr 21, 2021 05:36:44)
[2021-04-21 05:46] LABS: BASOPHILS % (AUTO) 0.3 % (0.2-1.0); HEMATOCRIT 37.3 % (42.0-54.0); HEMOGLOBIN 12.8 g/dL (13.5-18.0); LYMPHOCYTES # (AUTO) 0.9 X10^3/uL (1.3-2.9); LYMPHOCYTES % (AUTO) 5.8 % (21.0-51.0); MEAN CORPUSCULAR HEMOGLOBIN 31.5 pg (27.0-34.0); MEAN CORPUSCULAR HGB CONC 34.4 g/dL (33.0-35.0); MEAN CORPUSCULAR VOLUME 91.8 fL (80.0-100.0); MEAN PLATELET VOLUME 7.1 fL (7.4-11.0); MONOCYTES # (AUTO) 1.1 x10^3/uL (0.3-0.8); MONOCYTES % (AUTO) 7.6 % (0.0-13.0); NEUTROPHILS # (AUTO) 12.7 x10^3/uL (2.2-4.8); NEUTROPHILS % (AUTO) 86.3 % (42.0-75.0); RED BLOOD COUNT 4.07 X10^6/uL (4.7-6.0); RED CELL DISTRIBUTION WIDTH 12.7 % (11.6-16.5); WHITE BLOOD COUNT 14.7 X10^3/uL (3.6-10.0)
[2021-04-21 05:57] LABS: ALANINE AMINOTRANSFERASE 39 Units/L (12-78); ALBUMIN 2.1 g/dL (3.4-5.0); ALKALINE PHOSPHATASE 45 Units/L (46-116); ASPARTATE AMINO TRANSFERASE 26 Units/L (15-37); BLOOD UREA NITROGEN 22 mg/dL (7-18); CALCIUM 7.3 mg/dL (8.5-10.1); CARBON DIOXIDE 28.7 mmol/L (21-32); CHLORIDE 103 mmol/L (98-107); COR CA(FOR HYPOALB) 8.8 mg/dL (8.5-10.1); COR NA(FOR HYPERGLY) 139 mmol/L (136-145); CREATININE 1.03 mg/dL (0.70-1.30); SODIUM 138 mmol/L (136-145); TOTAL PROTEIN 6.2 g/dL (6.4-8.2); eGFR NON BLACK RACES > 60 (>60)
[2021-04-21 07:05] LABS: BAND NEUTROPHILS % 3 % (0-10); PLATELET MORPHOLOGY COMMENT NORMAL (NORMAL)
[2021-04-21] MEDS ORDERED: AYR NASAL DROPS ONE (08:53)
[2021-04-21] MEDS ORDERED: DECADRON TAB PO SCH (09:00)
[2021-04-21] MEDS: IVERMECTIN PO SCH (09:13)
[2021-04-21] MEDS: PROTONIX INJ 40 MG VIAL IVP SCH ×2 (09:13→20:33)
[2021-04-21] MEDS: ZINC SULFATE PO SCH ×2 (09:17→20:34)
[2021-04-21] MEDS: CYTOTEC PO SCH ×3 (09:23→20:33)
[2021-04-21] MEDS: VITAMIN A PO SCH (09:23)
[2021-04-21] MEDS: TRICOR TAB 160 MG PO SCH (09:23)
[2021-04-21] MEDS: LIPITOR TAB 80 MG PO SCH (09:24)
[2021-04-21] MEDS: VITAMIN D3 125 mcg (5,000 UNITS) PO SCH (09:24)
[2021-04-21] MEDS: PEPCID TAB 40 MG PO SCH ×2 (09:25→20:33)
[2021-04-21] MEDS: BROVANA IN SCH ×2 (09:26→20:00)
[2021-04-21] MEDS: PULMICORT NEB TX 0.5 MG NEB SCH ×2 (09:26→20:00)
[2021-04-21] MEDS: THIAMINE HCL INJ IVP SCH ×2 (09:26→20:33)
[2021-04-21] MEDS: VIBRAMYCIN PO SCH ×2 (09:27→20:33)
[2021-04-21] MEDS: ELIQUIS PO SCH ×2 (09:30→20:34)
[2021-04-21] MEDS ORDERED: NS 100 ML IV 100 ML ONE (14:25)
[2021-04-21] MEDS: MELATONIN PO SCH (20:33)
[2021-04-21] MEDS: NovoLIN R (or HumuLIN R) SUBCUT PRN (20:34)
[2021-04-22] MEDS: NS 1,000 ML IV 1,000 ML IV SCH (00:24)
[2021-04-22] MEDS: ASCORBIC ACID INJ MULTI-DOSE VIAL 1,500 MG in NS 50 ML IV 50 ML IV SCH (03:14)
[2021-04-22 06:02] LABS: BASOPHILS % (AUTO) 0.1 % (0.2-1.0); HEMATOCRIT 36.7 % (42.0-54.0); HEMOGLOBIN 12.2 g/dL (13.5-18.0); LYMPHOCYTES # (AUTO) 0.7 X10^3/uL (1.3-2.9); MEAN CORPUSCULAR HEMOGLOBIN 31.4 pg (27.0-34.0); MEAN CORPUSCULAR HGB CONC 33.3 g/dL (33.0-35.0); MEAN CORPUSCULAR VOLUME 94.3 fL (80.0-100.0); MEAN PLATELET VOLUME 6.9 fL (7.4-11.0); MONOCYTES % (AUTO) 6.9 % (0.0-13.0); NEUTROPHILS # (AUTO) 12.6 x10^3/uL (2.2-4.8); RED BLOOD COUNT 3.89 X10^6/uL (4.7-6.0); RED CELL DISTRIBUTION WIDTH 13.1 % (11.6-16.5); WHITE BLOOD COUNT 14.3 X10^3/uL (3.6-10.0)
[2021-04-22 06:08] LABS: BLOOD UREA NITROGEN 28 mg/dL (7-18); CALCIUM 7.4 mg/dL (8.5-10.1); CARBON DIOXIDE 27.6 mmol/L (21-32); CHLORIDE 104 mmol/L (98-107); COR NA(FOR HYPERGLY) 142 mmol/L (136-145); CREATININE 1.04 mg/dL (0.70-1.30); SODIUM 140 mmol/L (136-145); eGFR NON BLACK RACES > 60 (>60)
[2021-04-22 06:28] LABS: ALANINE AMINOTRANSFERASE 37 Units/L (12-78); ALKALINE PHOSPHATASE 39 Units/L (46-116); ASPARTATE AMINO TRANSFERASE 20 Units/L (15-37); TOTAL PROTEIN 5.6 g/dL (6.4-8.2)
[2021-04-22 06:57] LABS: BAND NEUTROPHILS % 3 % (0-10); PLATELET MORPHOLOGY COMMENT NORMAL (NORMAL)
[2021-04-22] MEDS: CARDIZEM INJ 125 MG VIAL 125 MG in NS 100 ML IV 100 ML IV PRN (06:58)
[2021-04-22] MEDS ORDERED: VITAMIN C PO SCH (09:00)
[2021-04-22] MEDS ORDERED: CARDIZEM CD 120 MG 24-HR PO SCH (09:00)
[2021-04-22] MEDS ORDERED: DECADRON TAB PO SCH (09:00)
[2021-04-22] MEDS: VIBRAMYCIN PO SCH (10:19)
[2021-04-22] MEDS: ELIQUIS PO SCH (10:19)
[2021-04-22] MEDS: LIPITOR TAB 80 MG PO SCH (10:20)
[2021-04-22] MEDS: VITAMIN D3 125 mcg (5,000 UNITS) PO SCH (10:20)
[2021-04-22] MEDS: CYTOTEC PO SCH (10:20)
[2021-04-22] MEDS: CARDIZEM CD 120 MG 24-HR PO SCH (10:20)
[2021-04-22] MEDS: BROVANA IN SCH (12:06)
[2021-04-22 15:31] VITALS: BP 126/68
== END 2021-04-22 17:50 | disposition home or self-care (01) | DRG 177 ==
LOC: ER 11:06 → ICU 11:06 → OBSVTOIN 16:52 → INTOOBSV 16:52 → ICU 19:29
PROVIDERS: ADMIT Obstetrics & Gynecology Obstetrics; ATTEND Obstetrics & Gynecology Obstetrics